=== PATIENT | male | born 1985 | race Caucasian/White ===

== ENCOUNTER 2017-08-24 18:12 | Emergency (ER) | payer OTHER ==
--- NOTE | 2017-08-24 18:41 | EDM.PDOC ---
ED HPI GENERAL MEDICAL PROBLEM - General Chief Complaint: ENT Problem Stated Complaint: ABCESS TOOTH Time Seen by Provider: 08/24/17 18:16 Source of Information: Reports: Patient History Limitations: Reports: No Limitations - History of Present Illness INITIAL COMMENTS - FREE TEXT/NARRATIVE: The patient presents with some swelling and discomfort to his right neck and jaw. He was concerned it could be a dental abscess but his teeth do not hurt. He had a cough, congestion, runny nose and headache recently. 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 He took some over the counter meds and he was better. He has no ear pain or sore throat. Onset: Sudden Duration: Hour(s): Location: Reports: Face, Neck Quality: Reports: Sharp Severity: Mild Improves with: Reports: None Worsens with: Reports: None Associated Symptoms: Reports: Cough, Fever/Chills. Denies: Chest Pain, Headaches, Nausea/Vomiting, Shortness of Breath Right Neck Pain Score (Numeric/FACES): 3 - Related Data Allergies Allergy/AdvReac Type Severity Reaction Status Date / Time dextromethorphan HBr Allergy Hives Verified 08/06/14 17:04 [From Mucinex DM] guaifenesin [From Mucinex DM] Allergy Hives Verified 08/06/14 17:04 Home Meds: Home Meds Ranitidine [Zantac] 75 mg PO DAILY 08/24/17 [History] Past Medical History - Past Health History Medical/Surgical History: Denies Medical/Surgical History Social & Family History - Tobacco Use Smoking Status *Q: Current Every Day Smoker Years of Tobacco use: 15 Packs/Tins Daily: 1 - Caffeine Use Caffeine Use: Reports: Energy Drinks - Alcohol Use Days Per Week of Alcohol Use: 2 Number of Drinks Per Day: 7 Total Drinks Per Week: 14 - Recreational Drug Use Recreational Drug Use: No ED ROS ENT - Review of Systems Review Of Systems: See Below Constitutional: Reports: No Symptoms HEENT: Reports: Other (Congestion and runny nose) Respiratory: Reports: Cough Cardiovascular: Reports: No Symptoms Endocrine: Reports: No Symptoms GI/Abdominal: Reports: No Symptoms : Reports: No Symptoms ED EXAM, ENT - Physical Exam Exam: See Below Exam Limited By: No Limitations General Appearance: Alert, No Apparent Distress Ears: Normal External Exam, Normal Canal, Other (Mild ertyhema and fluid behind the right TM.) Nose: Normal Inspection Mouth/Throat: Pharyngeal Erythema (Mild) Head: Atraumatic, Normocephalic Neck: Lymphadenopathy (R) Respiratory/Chest: No Respiratory Distress, Lungs Clear, Normal Breath Sounds Cardiovascular: Regular Rate, Rhythm, No Edema, No Murmur GI/Abdominal: Soft, Non-Tender, No Organomegaly, No Mass Back: CVA Tenderness (R) Extremities: Normal Inspection Course - Vital Signs Last Recorded V/S: Last Vital Signs Temp 98.8 F 08/24/17 18:27 Pulse 90 08/24/17 18:27 Resp 20 08/24/17 18:27 BP 154/106 H 08/24/17 18:27 Pulse Ox 98 08/24/17 18:27 - Re-Assessments/Exams Free Text/Narrative Re-Assessment/Exam: 08/24/17 18:39 It appears he has some lymphadenopathy from a viral URI. Just symptomatic treatment. Departure - Departure Time of Disposition: 18:40 Disposition: Home, Self-Care 01 Condition: Good Clinical Impression: Viral upper respiratory infection, Lymphadenopathy - Discharge Information Referrals: PCP,Not In Area [Primary Care Provider] - Additional Instructions: Use tyenol or motrin for any pain or fever. Drink plenty of fluids. You may also put some warm compresses on your neck for any swelling. Please return or follow up with your doctor if you are worse.
== END 2017-08-24 19:00 | disposition home or self-care (01) ==
LOC: JD.ED 18:12
DX: J06.9 Acute upper respiratory infection, unspecified (principal); R59.1 Generalized enlarged lymph nodes; F17.210 Nicotine dependence, cigarettes, uncomplicated; Z79.899 Other long term (current) drug therapy; Z88.8 Allergy status to other drugs, medicaments and biological substances
CPT/HCPCS: 99283

== ENCOUNTER 2019-02-05 21:23 | Emergency (ER) | payer OTHER ==
[2019-02-05] MEDS ORDERED: Lidocaine 1% 20 ML MDV INJECT ONE (21:44)
[2019-02-05] MEDS ORDERED: Lidocaine 1% 50 ML MDV ONE (21:46)
[2019-02-05] MEDS ORDERED: Lidocaine 1% 50 ML MDV INJECT STA (21:56)
--- NOTE | 2019-02-05 21:57 | EDM.PDOC ---
ED HPI GENERAL MEDICAL PROBLEM - General Chief Complaint: Genitourinary Problem Stated Complaint: GROIN PAIN BLEEDING Time Seen by Provider: 02/05/19 21:40 Source of Information: Reports: Patient History Limitations: Reports: No Limitations - History of Present Illness INITIAL COMMENTS - FREE TEXT/NARRATIVE: This is a 33-year-old male. He was climbing up in the back of the bed of a truck to get a beer when the corner of the tailgate snagged his crotch area and it tore his pants and underwear and lacerated his scrotum on the right. He denies any other acute symptoms. He states he is up-to-date with his tetanus. Groin Pain Score (Numeric/FACES): 10 - Related Data Allergies Allergy/AdvReac Type Severity Reaction Status Date / Time dextromethorphan HBr Allergy Hives Verified 02/05/19 21:30 [From Mucinex DM] guaifenesin [From Mucinex DM] Allergy Hives Verified 02/05/19 21:30 gain soap Allergy Hives Uncoded 02/05/19 21:30 Home Meds: Home Meds Ranitidine [Zantac] 75 mg PO DAILY 08/24/17 [History] Cephalexin [Keflex] 500 mg PO TID #15 capsule 02/05/19 [Rx] Hydrocodone/Acetaminophen [Hydrocodon-Acetaminophen 5-325] 1 each PO Q6H PRN # 12 tablet 02/05/19 [Rx] Past Medical History - Past Health History Medical/Surgical History: Denies Medical/Surgical History Social & Family History - Tobacco Use Smoking Status *Q: Current Every Day Smoker Years of Tobacco use: 5 Packs/Tins Daily: 0.5 - Caffeine Use Caffeine Use: Reports: Energy Drinks - Recreational Drug Use Recreational Drug Use: No ED ROS GENERAL - Review of Systems Review Of Systems: See Below Constitutional: Denies: Fever, Chills HEENT: Reports: No Symptoms Respiratory: Reports: No Symptoms Cardiovascular: Reports: No Symptoms Endocrine: Reports: No Symptoms GI/Abdominal: Reports: No Symptoms : Reports: Other (As per history of present illness) Musculoskeletal: Reports: No Symptoms Skin: Reports: No Symptoms Neurological: Reports: No Symptoms Psychiatric: Reports: No Symptoms Hematologic/Lymphatic: Reports: No Symptoms ED EXAM, RENAL/ - Physical Exam Exam: See Below Exam Limited By: No Limitations General Appearance: Alert, WD/WN, No Apparent Distress Ears: Normal External Exam Nose: Normal Inspection Throat/Mouth: Normal Inspection, Normal Lips, Normal Voice, No Airway Compromise Head: Normocephalic Neck: Supple Respiratory/Chest: No Respiratory Distress GI/Abdominal: Soft (Male) Exam: Other (There is a laceration on the right side of the scrotum semicircular and total laceration length is 7 cm, laceration just involves the skin and no other structures of the scrotal sac) Back Exam: Full Range of Motion Extremities: Normal Inspection, Normal Range of Motion Neurological: Alert, Oriented ED LACERATION PROCEDURES - Laceration/Wound Repair Right Scrotum Lac/wound length in cm: 7 Appearance: Subcutaneous, Linear, Clean Distal NVT: Neuro & Vascular Intact Anesthetic Type: Local Local Anesthesia - Lidocaine (Xylocaine): 1% Plain Local Anesthetic Volume: Other (25 ml) Skin Prep: Saline Saline irrigation (cc's): 250 Exploration/Debridement/Repair: Wound Explored, Explored to Base Closed with: Sutures Suture Size: 4-0 # of Sutures: 8 Drain Placement: No Sterile Dressing Applied: Nurse Tetanus Status Addressed: Yes Complications: No Course - Vital Signs Last Recorded V/S: Last Vital Signs Temp 98.2 F 02/05/19 21:30 Pulse 120 H 02/05/19 21:30 Resp 18 02/05/19 21:30 BP 168/116 H 02/05/19 21:30 Pulse Ox 98 02/05/19 21:30 - Orders/Labs/Meds Meds: Medications Discontinued Medications Generic Name Dose Route Start Last Admin Trade Name Ana Maria PRN Reason Stop Dose Admin Lidocaine HCl 20 ml 02/05/19 21:44 02/05/19 21:57 Xylocaine 1% INJECT 02/05/19 21:45 Not Given ONETIME ONE Lidocaine HCl Confirm 02/05/19 21:46 02/05/19 21:57 Xylocaine 1% Administered 02/05/19 21:47 Not Given Dose 50 ml .ROUTE .STK-MED ONE Lidocaine HCl 50 ml 02/05/19 21:56 02/05/19 21:58 Xylocaine 1% INJECT 02/05/19 21:57 50 ml NOW STA Administration - Re-Assessments/Exams Free Text/Narrative Re-Assessment/Exam: 02/06/19 00:45 The patient tolerated the suturing well and there was good closure and good approximation of the tissues. Departure - Departure Time of Disposition: 22:24 Disposition: Home, Self-Care 01 Condition: Good Clinical Impression: Laceration of scrotum Qualifiers: Encounter type: initial encounter Qualified Code(s): S31.31XA - Laceration without foreign body of scrotum and testes, initial encounter - Discharge Information *PRESCRIPTION DRUG MONITORING PROGRAM REVIEWED*: No *COPY OF PRESCRIPTION DRUG MONITORING REPORT IN PATIENT JARVIS: No Prescriptions: Cephalexin [Keflex] 500 mg PO TID #15 capsule Hydrocodone/Acetaminophen [Hydrocodon-Acetaminophen 5-325] 1 each PO Q6H PRN # 12 tablet PRN Reason: Pain Instructions: Laceration Care, Adult, [id number] Referrals: PCP,None [Primary Care Provider] - Forms: ED Department Discharge Additional Instructions: Get the antibiotics tomorrow when you get them and take them faithfully for the next 5 days, use the medicine for pain as needed, use an ice pack to the scrotum on and off for the next 24 hours but make sure you put a towel between the scrotum and the ice packs so you don't freeze the skin, limited walking since it will rub on the scrotum and can cause more swelling for the next 48 hours, you need the sutures removed in 7 days, if you are home just have your family physician remove the sutures if you were here return to the ER for suture removal, any signs of infection such as yellow drainage or increased redness or swelling despite the antibiotics be seen right away and do not wait, return to the ER if needed
== END 2019-02-05 22:49 | disposition home or self-care (01) ==
LOC: JD.ED 21:23
DX: S31.31XA Laceration without foreign body of scrotum and testes, initial encounter (principal); F17.210 Nicotine dependence, cigarettes, uncomplicated; Z91.09 Other allergy status, other than to drugs and biological substances; W26.8XXA Contact with other sharp object(s), not elsewhere classified, initial encounter
CPT/HCPCS: 12002; 99283; J2001